=== PATIENT | female | born 1950 | race Caucasian/White ===

== ENCOUNTER 2018-11-24 21:42 | Emergency (ER) | payer MEDICARE, BC ==
[~2018-11-24] VITALS: Wt 62.9 kg
--- NOTE | 2018-11-24 22:17 | ERD ---
ER Documentation Chief Complaint Chief Complaint POSTERIOR HEAD PRESSURE/ HTN X4DAYS HPI The patient is a 68-year-old female, presenting to the ER because of intermittent occipital headache with elevated blood pressure for the last 4 days. She had similar symptoms previously about 2 years ago when her , denies any stress or unusual stress recently, denies blurred vision, dizziness, neck pain, chest pain, dyspnea, abdominal pain, vomiting, dysuria, diarrhea. She smokes socially, denies drinking Past medical history: None Past surgical history: Hysterectomy, cholecystectomy ROS All systems reviewed and are negative except as per history of present illness. Medications Home Meds Active Scripts Metformin* (Glucophage*) 500 Mg Tab, 500 MG PO WITH BREAKFAST, #14 TAB Prov:AMAYA LARIOS MD 11/25/18 Amlodipine Besylate* (Norvasc*) 2.5 Mg Tablet, 2.5 MG PO DAILY, #14 TAB Prov:AMAYA LARIOS MD 11/25/18 Allergies Allergies: Coded Allergies: Unknown: Unable to obtain (Unverified , 11/24/18) Physical Exam Vitals Vital Signs Date Temp Pulse Resp B/P (MAP) Pulse Ox O2 O2 Flow FiO2 Time Delivery Rate 11/25/18 84 14 164/97 98 Room Air 00:13 (119) 11/24/18 86 16 180/88 98 Room Air 22:06 (118) 11/24/18 97.9 101 22 204/100 96 21:49 (134) Physical Exam Const: No acute distress. Head: Atraumatic. Eyes: Normal Conjunctiva. ENT: Normal External Ears, Nose and Mouth. Neck: Full range of motion. No meningismus. Resp: Clear to auscultation bilaterally. Cardio: Regular rate and rhythm. Abd: Soft, non distended, normal bowel sounds, non tender. Skin: No petechiae or rashes. Back: No midline or flank tenderness. Ext: No cyanosis, or edema. Neur: Awake and alert. No focal deficit Psych: Normal Mood and Affect. Result Diagram: 11/24/18222311/24/184 Results 24 hrs Laboratory Tests Test 11/24/18 22:24 11/25/18 00:11 White Blood Count 6.5 10^3/ul Red Blood Count 5.02 10^6/ul Hemoglobin 14.2 g/dl Hematocrit 44.0 % Mean Corpuscular Volume 87.6 fl Mean Corpuscular Hemoglobin 28.3 pg Mean Corpuscular Hemoglobin Concent 32.3 g/dl Red Cell Distribution Width 12.2 % Platelet Count 346 10^3/UL Mean Platelet Volume 9.4 fl Immature Granulocytes % 0.300 % Neutrophils % 47.4 % Lymphocytes % 42.2 % Monocytes % 7.3 % Eosinophils % 2.3 % Basophils % 0.5 % Nucleated Red Blood Cells % 0.0 /100WBC Immature Granulocytes # 0.020 10^3/ul Neutrophils # 3.1 10^3/ul Lymphocytes # 2.7 10^3/ul Monocytes # 0.5 10^3/ul Eosinophils # 0.2 10^3/ul Basophils # 0.0 10^3/ul Nucleated Red Blood Cells # 0.0 10^3/ul Prothrombin Time 11.2 Sec Prothrombin Time Ratio 0.9 INR International Normalized Ratio 0.80 Activated Partial Thromboplast Time 23.7 Sec Sodium Level 135 mmol/L Potassium Level 4.4 mmol/L Chloride Level 97 mmol/L Carbon Dioxide Level 28 mmol/L Anion Gap 10 Blood Urea Nitrogen 11 mg/dl Creatinine 0.57 mg/dl Est Glomerular Filtrat Rate mL/min > 60 mL/min Glucose Level 447 mg/dl Calcium Level 9.5 mg/dl Bedside Glucose 390 mg/dL Current Medications Medications Dose Sig/Sam Start Time Status Last (Trade) Ordered Route PRN Stop Time Admin Dose Reason Admin 650 mg ONCE ONCE 11/24/18 DC 11/24/18 Acetaminophen PO 23:00 22:40 (Tylenol 11/24/18 23:01 Tab) Sodium 1,000 ml @ Q1H ONCE 11/24/18 DC 11/24/18 Chloride 1,000 mls/hr IV 23:00 23:06 11/24/18 23:59 Insulin 6 unit ONCE ONCE 11/25/18 DC 11/25/18 Human SC 00:30 00:40 Lispro 11/25/18 00:31 (Humalog) Diagnostic 1 ea 2 HRS AFTER 11/25/18 Test (Pha) HUMALOG ONCE 01:00 (Accu-Chek) XX 11/25/18 01:01 Procedures/[place] [id number] Radiology Main Line: [phone] DIAGNOSTIC IMAGING REPORT Patient: HILDA PELAEZ : 1950 Age: 68 Sex: F MR #: [id number] DOS: 11/24/182233 Ordering MD: AMAYA LARIOS MD Location: E/R Room/Bed: PROCEDURE: CT Brain without contrast. CLINICAL INDICATION: Headache. TECHNIQUE: A CT of the brain without contrast was performed utilizing axial sections from the skull base through the vertex. One or more the following does reduction techniques were utilized: Automated exposure control, adjustment of the mA/ or kV according to patient's size, or use of iterative reconstruction technique. Total exam CTDIvol is 37 MGy and DLP is 634 mGy-cm. DICOM images are available. COMPARISON: None available. FINDINGS: The ventricles and sulci are mildly prominent indicative of volume loss. There is no intracranial hemorrhage, mass effect or midline shift. No abnormal intra- axial or extra-axial fluid collections are seen. The sandoval/white matter differe ntiation is well preserved. Small old lacunar infarct is noted in the right caudate head/anterior limb of the right internal capsule. There are mild scattered foci of hypoattenuation in the periventricular, deep, and subcortical white matter, which are nonspecific in etiology but likely reflect chronic small vessel ischemic changes. The visualized paranasal sinuses are essentially clear. IMPRESSION: 1. No acute intracranial hemorrhage, transcortical infarction or mass effect. 2. Mild intracranial atherosclerosis and chronic small vessel ischemic changes. 3. Small old lacunar infarct is noted in the right caudate head/anterior limb of the right internal capsule. 4. Mild generalized cerebral volume loss. RPTAT: HFN .Acacia Martinez MD, MD Date Time Electronically viewed and signed by .Acacia Martinez MD, MD on 11/24/2018 23:15 .N/ CC: AMAYA LARIOS MD [phone] EKG: Read by emergency physician Rate/Rhythm: Normal Sinus Rhythm 98 beats/min QRS, ST, T-waves: No ST elevation, no T inversion, LAE Impression: Abnormal EKG MEDICAL MAKING DECISION: The patient is a 68-year-old female, presenting with acute cephalgia, most likely due to acute accelerated hypertension, new onset diabetes. She was treated with Tylenol 650 mg p.o. for acute headache, 1 L normal saline and Humalog 6 units subcutaneously for acute diabetic hyperglycemia with good response, she is stable for outpatient follow-up The differential diagnoses considered include but are not limited to subarachnoid hemorrhage, occult trauma, CVA, meningitis, encephalitis, hypertension, tension, migraine, cluster, narcotic withdrawal, cervical spine disease. Departure Diagnosis: Primary Impression: HTN (hypertension) Additional Impression: Diabetes Condition: Good Comments She was discharged with Norvasc 2.5 mg daily and metformin 500 mg daily I discussed the findings with the patient. I advised the patient to follow-up with the primary physician in about 1-2 days for reevaluation and further treatment for her diabetes and hypertension, sooner if needed and return if any concern. Disclaimer: Inadvertent spelling and grammatical errors are likely due to EHR/dictation software use and do not reflect on the overall quality of patient care. Also, please note that the electronic time recorded on this note does not necessarily reflect the actual time of the patient encounter. AMAYA LARIOS MD November 24, 2018 22:17
[2018-11-24] MEDS ORDERED: ACETAMINOPHEN 325 MG TAB PO ONE (23:00)
[2018-11-24] MEDS ORDERED: SOD CHLORIDE 0.9% 1,000 ML IV ONE (23:00)
[2018-11-25] MEDS ORDERED: INSULIN LISPRO 100 UNIT/ML VIAL SC ONE (00:30)
[2018-11-25] MEDS ORDERED: AMLO2.5T2 PO (00:32)
[2018-11-25] MEDS ORDERED: METF-849 PO (00:32)
[2018-11-25] MEDS ORDERED: ACCU-CHEK XX ONE (01:00)
[2018-11-25 01:30] VITALS: BP 175/97; PULSE 79; RESP 20
== END 2018-11-25 01:30 | disposition home or self-care (01) ==
LOC: E/R 21:42
DX: I10 Essential (primary) hypertension (principal); E11.9 Type 2 diabetes mellitus without complications; Z79.84 Long term (current) use of oral hypoglycemic drugs; Z87.891 Personal history of nicotine dependence
CPT/HCPCS: 70450; 80048; 82962; 85025; 85610; 85730; 93005; J1815; J7030; 36415; 96372